=== PATIENT | female | born 1990 | race Caucasian/White ===

== ENCOUNTER 2018-07-17 22:57 | Emergency (ER) | payer MEDICAID ==
[~2018-07-17] VITALS: Ht 162.6 cm; Wt 74.8 kg
[2018-07-17 23:03] VITALS: BP 132/74
--- NOTE | 2018-07-17 23:03 | NUR ---
TO BED # 12 AMBULATORY
--- NOTE | 2018-07-17 23:17 | NUR ---
BIB SELF WITH REPORTS OF LOWER BACK PAIN X 3 WEEKS AND LOW ABD PAIN SINCE YESTERDAY. STATES SHE TOOK A HOME TEST YESTERDAY THAT RESULTED POSITIVE. HAS NOT SEEN OB YET. STATES SHE HAD A SMALL AMOUNT OF BLOOD IN HER UNDERWEAR ON SATURDAY ONE TIME. DENIES OTHER SYMPTOMS AT THIS TIME.
--- NOTE | 2018-07-17 23:48 | NUR ---
US AT BEDSIDE.
[2018-07-17 23:56] LABS: APPEARANCE,URINE CLEAR (CLEAR); BILIRUBIN,URINE NEGATIVE (NEGATIVE); BLOOD, URINE 1+ (NEGATIVE); COLOR,URINE YELLOW (YELLOW); LEUKOCYTE ESTERASE ,URINE NEGATIVE (NEGATIVE); NITRITE, URINE NEGATIVE (NEGATIVE); UGLUCOSE NEGATIVE (NEGATIVE)
[2018-07-17 23:56] LABS: BASOPHILS # (AUTO) 0.1 K/uL (0.00-0.22); BASOPHILS % (AUTO) 0.7 % (0.0-2.0); EOSINOPHILS # (AUTO) 0.1 K/uL (0-0.4); EOSINOPHILS % (AUTO) 0.9 % (0.0-4.0); HEMATOCRIT 37.7 % (36-48); HEMOGLOBIN 12.3 g/dL (12.0-16.0); LYMPHOCYTES # (AUTO) 3.5 K/uL (2.5-16.5); LYMPHOCYTES % (AUTO) 31.9 % (20.5-51.1); MEAN CORPUSCULAR HEMOGLOBIN 26 pg (27-31); MEAN CORPUSCULAR HGB CONC 33 g/dL (33-37); MEAN CORPUSCULAR VOLUME 79.3 fL (80-94); MONOCYTES # (AUTO) 0.9 K/uL (0.8-1.0); NEUTROPHILS # (AUTO) 6.5 K/uL (1.8-7.7); NEUTROPHILS % (AUTO) 58.5 % (42.2-75.2); PLATELET COUNT (AUTO) 122 K/uL (140-450); RED BLOOD CELL COUNT(AUTO) 4.75 MIL/uL (4.20-5.40); WHITE BLOOD COUNT (AUTO) 11.1 K/uL (4.8-10.8)
[2018-07-18 00:06] LABS: WBC,URINE 0-5 /HPF (0-5)
--- NOTE | 2018-07-18 02:06 | NUR ---
DR ODEN AT BEDSIDE.
[2018-07-18 02:26] VITALS: BP 128/72
--- NOTE | 2018-07-18 02:27 | NUR ---
Patient discharged with v/s stable. Written and verbal after care instructions given and explained. Patient verbalized understanding. Ambulatory with steady gait. All questions addressed prior to discharge. Advised to follow up with PMD.
== END 2018-07-18 02:27 | disposition home or self-care (01) ==
LOC: MED 22:57
DX: O20.0 Threatened abortion (principal); Z3A.01 Less than 8 weeks gestation of pregnancy
CPT/HCPCS: 36415; 76817; 81001; 81002; 81025; 84702; 85025; 86900; 86901; 99284; Q0092

== ENCOUNTER 2021-12-06 12:03 | Emergency (ER) | payer MEDICAID ==
--- NOTE | 2021-12-06 12:07 | NUR ---
PATIENT LEFT WITHOUT BEING SEEN BY DR. GRADY. NO FURTHER CARE PROVIDED FOR PATIENT.
[2021-12-06] MEDS ORDERED: IBUP-2213 PO (20:59)
== END 2021-12-06 12:07 | disposition left against medical advice (07) ==
LOC: MED 12:03
DX: R07.89 Other chest pain (principal); Z53.21 Procedure and treatment not carried out due to patient leaving prior to being seen by health care provider

== ENCOUNTER 2021-12-06 16:58 | Emergency (ER) | payer MEDICAID ==
[~2021-12-06] VITALS: Ht 160 cm; Wt 93.4 kg
[2021-12-06 17:32] VITALS: BP 131/78
[2021-12-06] MEDS ORDERED: IBUPROFEN 600 MG TAB PO ONE (18:50)
[2021-12-06 19:29] LABS: BASOPHILS # (AUTO) 0.1 K/uL (0.00-0.22); BASOPHILS % (AUTO) 0.6 % (0.0-2.0); EOSINOPHILS % (AUTO) 0.1 % (0.0-4.0); HEMATOCRIT 38.7 % (36-48); HEMOGLOBIN 12.9 g/dL (12.0-16.0); LYMPHOCYTES # (AUTO) 3.2 K/uL (2.5-16.5); LYMPHOCYTES % (AUTO) 23.1 % (20.5-51.1); MEAN CORPUSCULAR HEMOGLOBIN 25 pg (27-31); MEAN CORPUSCULAR HGB CONC 33 g/dL (33-37); MEAN CORPUSCULAR VOLUME 76.3 fL (80-94); MONOCYTES # (AUTO) 0.8 K/uL (0.8-1.0); NEUTROPHILS # (AUTO) 9.8 K/uL (1.8-7.7); NEUTROPHILS % (AUTO) 70.2 % (42.2-75.2); PLATELET COUNT (AUTO) 235 K/uL (140-450); RED BLOOD CELL COUNT(AUTO) 5.08 MIL/uL (4.20-5.40); RED CELL DISTRIBUTION WIDTH 14.2 % (11.6-13.7)
[2021-12-06] MEDS ORDERED: IBUPROFEN 600 MG TAB ONE (20:02)
[2021-12-06 20:09] LABS: ALBUMIN 3.8 g/dL (3.4-5.0); CHLORIDE 102 mmol/L (98-107); CREATININE 0.7 mg/dL (0.6-1.3); GFR ARICAN-AMERICAN 127 mL/min (>90); POTASSIUM 3.8 mmol/L (3.5-5.1)
[2021-12-06 20:22] LABS: ASPARTATE AMINOTRANSFERASE 12 U/L (15-37); TOTAL BILIRUBIN 0.3 mg/dL (0.0-1.0)
[2021-12-06 20:29] LABS: ANION GAP 14.4 (8-16); CARBON DIOXIDE 27.4 mmol/L (21-32); GLUCOSE 105 mg/dL (74-106); SODIUM SERUM 140 mmol/L (136-145); UREA NITROGEN, BLOOD 15 mg/dL (7-18)
[2021-12-06] MEDS ORDERED: IBUP-2213 PO (20:59)
[2021-12-06 21:10] VITALS: BP 128/78
== END 2021-12-06 21:10 | disposition home or self-care (01) ==
LOC: MED 16:58
DX: R07.89 Other chest pain (principal)
CPT/HCPCS: 36415; 71045; 80053; 84484; 85025; 85379; 93005; 99285